=== PATIENT | female | born 1990 | race Caucasian/White ===

== ENCOUNTER 2023-10-03 17:14 | Emergency (ER) | payer MEDICAID ==
[~2023-10-03] VITALS: Ht 180.3 cm; Wt 125.0 kg
[2023-10-03 17:27] VITALS: BP 156/110; PULSE 101; RESP 18; TEMP 98; O2SAT 98
[2023-10-03] MEDS ORDERED: IBUP-1984 PO (18:42)
[2023-10-03] MEDS ORDERED: AMOX-580 PO (18:42)
[2023-10-03] MEDS: dexamethasone sod phosphate 10mg/ml inj PO STA (19:11)
[2023-10-03] MEDS: amox tr/potassium clavulanate 875/125mg TAB PO ONE (19:11)
[2023-10-03] MEDS: ibuprofen tablet 400 MG TABLET PO ONE (19:11)
== END 2023-10-03 19:11 | disposition home or self-care (01) ==
LOC: ER 17:14
DX: H66.91 Otitis media, unspecified, right ear (principal); Z79.1 Long term (current) use of non-steroidal anti-inflammatories (NSAID); Z79.2 Long term (current) use of antibiotics
CPT/HCPCS: 99283